=== PATIENT | female | born 1950 | race African-American/Black ===

== ENCOUNTER 2018-10-09 07:33 | Inpatient (IN) | payer MEDICAID ==
[~2018-10-09] VITALS: Ht 167.6 cm; Wt 74.0 kg
[~2018-10-09 07:33] MED LIST: ASPI-1159 PO; CALC667C4 PO; CINA30 PO; CYCL5TAB PO; DOCU-150 PO; HYDR-523 PO; ISOS30TA6 PO; LOSA100T14 PO; NEPVIT PO; NIFE-1 PO; OMEP40CA34 PO; SIMV20TA6 PO; VALS320T2 PO
[2018-10-09] MEDS ORDERED: ONDANSETRON HCL 4MG/2ML INJ IV STA (09:38)
[2018-10-09] MEDS ORDERED: MORPHINE SULFATE 4 MG/ML CPJ (NOT FOR IM USE) IV STA (09:38)
[2018-10-09 11:50] LABS: BASOPHILS % 0.6 % (0.0-2.0); EOSINOPHILS % 1.8 % (0.0-5.0); HEMOGLOBIN. 10.1 g/dL (12.0-16.0); LYMPHOCYTES % 19.5 % (20.0-50.0); MEAN CORPUSCULAR HEMOGLOBIN 27.4 pg (28.0-32.0); MEAN CORPUSCULAR VOLUME 86.5 fL (81.0-99.0); MEAN PLATELET VOLUME 9.1 fl (7.4-10.4); MONOCYTES % 8.4 % (2.0-8.0); NEUTROPHILS % 69.7 % (40.0-76.0); PLATELET 136 x1000/uL (130-400); RED BLOOD CELL COUNT 3.69 mill/uL (4.2-5.4); RED CELL DISTRIBUTION WIDTH 18.1 % (11.6-14.6)
[2018-10-09 11:57] LABS: CHLORIDE 104 mEq/L (98-107)
[2018-10-09 11:58] LABS: PARTIAL THROMBOPLASTIN TIME 29.4 sec (23.4-31.0); PROTHROMBIN TIME 9.6 sec (9.1-11.1)
[2018-10-09] MEDS ORDERED: ASPIRIN 81MG TABLET PO ONE (12:30)
[2018-10-09] MEDS ORDERED: DEXTROSE 50% WATER 50ML SYRINGE IV ONE (13:30)
[2018-10-09] MEDS ORDERED: ACETAMINOPHEN 650MG/20.3ML UDC GT PRN (16:00)
[2018-10-09] MEDS ORDERED: ENOXAPARIN 40MG/0.4ML SYR SUBCUT SCH ×2 (16:00→20:00)
[2018-10-09] MEDS ORDERED: HYDROCODONE/ACETAMINOPHEN 5/325MG TABLET PO PRN (16:00)
[2018-10-09] MEDS ORDERED: DIPHENHYDRAMINE 50MG/ML VIAL IV PRN (16:00)
[2018-10-09] MEDS ORDERED: GUAIFENESIN 200MG/10ML SUGAR FREE UDC PO PRN (16:00)
[2018-10-09] MEDS ORDERED: CLONIDINE 0.1MG TABLET PO PRN (16:00)
[2018-10-09] MEDS ORDERED: IPRATROPIUM/ALBUTEROL 0.5-3(2.5)MG/3ML NEB INH PRN (16:00)
[2018-10-09] MEDS ORDERED: ACETAMINOPHEN 325MG TABLET PO PRN (16:00)
[2018-10-09] MEDS ORDERED: DOCUSATE SODIUM 100MG CAPSULE PO PRN (16:00)
[2018-10-09] MEDS ORDERED: ACETAMINOPHEN 650MG SUPP PR PRN (16:00)
[2018-10-09] MEDS ORDERED: NA PHOS,M-B/NA PHOS,DI-BA ENEMA 118ML PR PRN (16:00)
[2018-10-09] MEDS ORDERED: MAGNESIUM/ALUMINUM HYDROXIDE/SIMETHICONE 30ML UDC PO PRN (16:00)
[2018-10-09 20:00] VITALS: BP 127/75
[2018-10-09] MEDS: HYDROCODONE/ACETAMINOPHEN 10/325MG TABLET PO PRN (20:33)
[2018-10-09] MEDS: SODIUM CHLORIDE 0.9% INJ 3ML FLUSH IVF SCH (20:48)
[2018-10-10] VITALS: BP 123/53
[2018-10-10 01:22] LABS: CREATINE KINASE 52 IU/L (26-192)
[2018-10-10 01:25] LABS: CREATINE KINASE MB FRACTION 2.8 ng/mL (0.5-3.6)
[2018-10-10 04:00] VITALS: BP 107/63
[2018-10-10] MEDS: HYDROCODONE/ACETAMINOPHEN 10/325MG TABLET PO PRN ×2 (04:09→17:28)
[2018-10-10] MEDS: SODIUM CHLORIDE 0.9% INJ 3ML FLUSH IVF SCH ×2 (06:10→21:52)
[2018-10-10 08:00] VITALS: BP 125/77
[2018-10-10 11:22] LABS: BASOPHILS % 0.7 % (0.0-2.0); EOSINOPHILS % 1.5 % (0.0-5.0); HEMATOCRIT. 33.5 % (36.0-48.0); HEMOGLOBIN. 10.6 g/dL (12.0-16.0); LYMPHOCYTES % 18.7 % (20.0-50.0); MEAN CORPUSCULAR HEMOGLOBIN 27.1 pg (28.0-32.0); MEAN CORPUSCULAR VOLUME 85.5 fL (81.0-99.0); MONOCYTES % 10.3 % (2.0-8.0); NEUTROPHILS % 68.8 % (40.0-76.0); PLATELET 146 x1000/uL (130-400); RED BLOOD CELL COUNT 3.91 mill/uL (4.2-5.4); RED CELL DISTRIBUTION WIDTH 18.2 % (11.6-14.6)
[2018-10-10 11:35] LABS: CHLORIDE 104 mEq/L (98-107)
[2018-10-10 11:45] LABS: LDL CHOLESTEROL 47 mg/dL (5-100)
[2018-10-10 11:46] LABS: CREATINE KINASE 47 IU/L (26-192); HDL CHOLESTEROL 106 mg/dL (40-59)
[2018-10-10 12:00] VITALS: BP 147/76
[2018-10-10 13:20] LABS: T4 FREE 1.21 ng/dL (0.76-1.46)
[2018-10-10 16:00] VITALS: BP 133/68
[2018-10-10 20:00] VITALS: BP 144/71
[2018-10-10] MEDS ORDERED: ENOXAPARIN 30MG/0.3ML SYR SUBCUT SCH (21:00)
[2018-10-11 04:00] VITALS: BP 178/81
[2018-10-11] MEDS: HYDROCODONE/ACETAMINOPHEN 10/325MG TABLET PO PRN (04:28)
[2018-10-11] MEDS: SODIUM CHLORIDE 0.9% INJ 3ML FLUSH IVF SCH ×2 (05:44→05:45)
[2018-10-11 07:43] LABS: HEMATOCRIT. 33.2 % (36.0-48.0); HEMOGLOBIN. 10.4 g/dL (12.0-16.0); MEAN CORPUSCULAR HEMOGLOBIN 26.9 pg (28.0-32.0); MEAN PLATELET VOLUME 9.5 fl (7.4-10.4); PLATELET 129 x1000/uL (130-400); RED BLOOD CELL COUNT 3.86 mill/uL (4.2-5.4)
[2018-10-11 08:00] VITALS: BP 146/69
[2018-10-11 08:09] LABS: PHOSPHORUS 4.4 mg/dL (2.5-4.9)
[2018-10-11 12:00] VITALS: BP 149/64
[2018-10-11 14:41] VITALS: BP 149/64
[2018-10-11 17:40] LABS: PLATELET ESTIMATE DECREASED
== END 2018-10-11 16:15 | disposition home or self-care (01) | DRG 203 ==
LOC: ER 07:33 → 7WST 12:37 → ENRESERV 17:09
PROVIDERS: ADMIT Family Medicine; ATTEND Family Medicine
PROC: 5A1D70Z Performance of Urinary Filtration, Intermittent, Less than 6 Hours Per Day (ICD-10-PCS; principal; 2018-10-10)
DX: M94.0 Chondrocostal junction syndrome [Tietze] (principal); I12.0 Hypertensive chronic kidney disease with stage 5 chronic kidney disease or end stage renal disease; F03.90 Unspecified dementia, unspecified severity, without behavioral disturbance, psychotic disturbance, mood disturbance, and anxiety; N18.6 End stage renal disease; D63.1 Anemia in chronic kidney disease; J44.9 Chronic obstructive pulmonary disease, unspecified; K21.9 Gastro-esophageal reflux disease without esophagitis; M79.606 Pain in leg, unspecified; W18.39XA Other fall on same level, initial encounter; Z88.8 Allergy status to other drugs, medicaments and biological substances; Z99.2 Dependence on renal dialysis; Z72.0 Tobacco use; Z88.1 Allergy status to other antibiotic agents; Y93.89 Activity, other specified; Y92.89 Other specified places as the place of occurrence of the external cause; Y99.8 Other external cause status
CPT/HCPCS: 36415; 71045; 72070; 80048; 80061; 82550; 82553; 82962; 83036; 83735; 83880; 84100; 84439; 84443; 84484; 85379; 93005; 93306; 93970; 96372; 99285; J1200; J1650; J2270; J2405

== ENCOUNTER 2018-11-19 15:31 | Emergency (ER) | payer MEDICAID ==
[~2018-11-19] VITALS: Ht 160 cm; Wt 70.0 kg
[2018-11-19 20:53] VITALS: BP 192/85
== END 2018-11-19 22:48 | disposition left against medical advice (07) ==
LOC: ER 16:07
DX: Z53.21 Procedure and treatment not carried out due to patient leaving prior to being seen by health care provider (principal)

== ENCOUNTER 2020-01-05 14:54 | Emergency (ER) | payer MEDICAID ==
[~2020-01-05] VITALS: Ht 167.6 cm; Wt 80.0 kg
[~2020-01-05 14:54] MED LIST changes: -ASPI-1159 PO; +ASPI-1497 PO; -LOSA100T14 PO; +LOSA100T32 PO; -NIFE-1 PO; +NIFE-53 PO; +OMEP40CA12 PO; -OMEP40CA34 PO; +SIMV-43 PO; -SIMV20TA6 PO
[2020-01-05 14:56] VITALS: BP 110/53
[2020-01-05] MEDS ORDERED: ACETAMINOPHEN 325MG TABLET PO STA (18:06)
== END 2020-01-05 21:17 | disposition home or self-care (01) ==
LOC: ER 15:07
DX: S80.11XA Contusion of right lower leg, initial encounter (principal); X58.XXXA Exposure to other specified factors, initial encounter; Y93.9 Activity, unspecified; Y92.89 Other specified places as the place of occurrence of the external cause; I12.0 Hypertensive chronic kidney disease with stage 5 chronic kidney disease or end stage renal disease; N18.6 End stage renal disease; Z99.2 Dependence on renal dialysis
CPT/HCPCS: 73590; 93971; 99284

== ENCOUNTER 2021-04-29 14:56 | Inpatient (IN) | payer MEDICAID ==
[~2021-04-29] VITALS: Ht 165.1 cm; Wt 71.2 kg
[~2021-04-29 14:56] MED LIST changes: -ISOS30TA6 PO; +ISOS30TA91 PO
[2021-04-29 22:25] LABS: BASOPHILS % 0.5 % (0.0-2.0); EOSINOPHILS % 1.9 % (0.0-5.0); HEMATOCRIT. 36.1 % (36.0-48.0); HEMOGLOBIN. 11.8 g/dL (12.0-16.0); LYMPHOCYTES % 21.3 % (20.0-50.0); MEAN CORPUSCULAR VOLUME 85.9 fL (81.0-99.0); MEAN PLATELET VOLUME 9.3 fl (7.4-10.4); MONOCYTES % 8.6 % (2.0-8.0); NEUTROPHILS % 67.7 % (40.0-76.0); PLATELET 260 x1000/uL (130-400); RED CELL DISTRIBUTION WIDTH 16.7 % (11.6-14.6)
[2021-04-29 22:26] LABS: CHLORIDE 100 mEq/L (98-107)
[2021-04-29 22:29] LABS: INR 0.9; PROTHROMBIN TIME 9.8 sec (9.6-11.0)
[2021-04-29] MEDS ORDERED: DEXTROSE 50% WATER 50ML SYRINGE IV NR (23:15)
[2021-04-29] MEDS ORDERED: ALBUTEROL (0.083%) 2.5MG/3ML NEB HHN NR (23:15)
[2021-04-29] MEDS ORDERED: SODIUM POLYSTYRENE SULFONATE 15 G/60 ML BOT PO NR (23:15)
[2021-04-29] MEDS ORDERED: INSULIN REGULAR (HUMULIN R) 300UNITS/3ML VIAL IV NR (23:15)
[2021-04-29] MEDS ORDERED: FUROSEMIDE 100MG/10ML VIAL IV NR (23:15)
[2021-04-29] MEDS ORDERED: CALCIUM GLUCONATE 100MG/ML 10ML VIAL IV ONE (23:45)
[2021-04-30 09:06] VITALS: BP 167/77
[2021-04-30] MEDS ORDERED: ONDANSETRON HCL 4MG/2ML INJ IV PRN (10:15)
[2021-04-30] MEDS: AMLODIPINE 10MG TABLET PO SCH (12:45)
[2021-04-30] MEDS ORDERED: LIDOCAINE HCL 1% 20ML VIAL (Pyxis) INJ ONE (14:07)
[2021-04-30] MEDS ORDERED: HEPARIN 1000 UNITS/ML 10ML ONE (14:07)
[2021-04-30] MEDS ORDERED: SODIUM POLYSTYRENE SULFONATE 15 G/60 ML BOT PO NR (15:00)
[2021-04-30 16:00] VITALS: BP 153/79
[2021-04-30] MEDS ORDERED: HYDROCODONE/ACETAMINOPHEN 5/325MG TABLET PO PRN (16:30)
[2021-04-30] MEDS ORDERED: MORPHINE SULFATE 2 MG/ML CPJ (NOT FOR IM USE) IV ONE (16:30)
[2021-04-30] MEDS ORDERED: CLONIDINE 0.1MG TABLET PO PRN (16:30)
[2021-04-30 17:12] LABS: BASOPHILS % 0.3 % (0.0-2.0); EOSINOPHILS % 1.7 % (0.0-5.0); HEMATOCRIT. 33.8 % (36.0-48.0); HEMOGLOBIN. 10.4 g/dL (12.0-16.0); LYMPHOCYTES % 17.5 % (20.0-50.0); MEAN CORPUSCULAR HEMOGLOBIN 28.1 pg (28.0-32.0); MEAN CORPUSCULAR VOLUME 90.9 fL (81.0-99.0); MEAN PLATELET VOLUME 9.2 fl (7.4-10.4); MONOCYTES % 7.6 % (2.0-8.0); NEUTROPHILS % 72.9 % (40.0-76.0); PLATELET 149 x1000/uL (130-400); RED BLOOD CELL COUNT 3.72 mill/uL (4.2-5.4); RED CELL DISTRIBUTION WIDTH 17.2 % (11.6-14.6)
[2021-04-30 17:24] LABS: PHOSPHORUS 6.7 mg/dL (2.5-4.9)
[2021-04-30 17:59] LABS: HEPATITIS B SURFACE ANTIGEN NEGATIVE
[2021-04-30 20:00] VITALS: BP 120/56
[2021-05-01] VITALS: BP 151/70
[2021-05-01] MEDS: ACETAMINOPHEN 325MG TABLET PO PRN (01:40)
[2021-05-01 04:00] VITALS: BP 145/69
[2021-05-01] MEDS ORDERED: MORPHINE SULFATE 2 MG/ML CPJ (NOT FOR IM USE) IV SCH (05:30)
[2021-05-01 08:00] VITALS: BP 147/62
[2021-05-01] MEDS ORDERED: NALOXONE HCL 0.4MG/ML VIAL IV PRN (08:45)
[2021-05-01 08:47] LABS: BASOPHILS % 0.6 % (0.0-2.0); EOSINOPHILS % 1.3 % (0.0-5.0); HEMATOCRIT. 38.5 % (36.0-48.0); HEMOGLOBIN. 11.5 g/dL (12.0-16.0); LYMPHOCYTES % 16.6 % (20.0-50.0); MEAN CORPUSCULAR HEMOGLOBIN 27.9 pg (28.0-32.0); MEAN CORPUSCULAR VOLUME 93.7 fL (81.0-99.0); MONOCYTES % 8.8 % (2.0-8.0); NEUTROPHILS % 72.7 % (40.0-76.0); PLATELET 179 x1000/uL (130-400); RED BLOOD CELL COUNT 4.11 mill/uL (4.2-5.4); RED CELL DISTRIBUTION WIDTH 17.2 % (11.6-14.6)
[2021-05-01] MEDS: HYDROCODONE/ACETAMINOPHEN 5/325MG TABLET PO PRN ×2 (09:16→14:06)
[2021-05-01] MEDS: AMLODIPINE 10MG TABLET PO SCH (09:17)
[2021-05-01 12:00] VITALS: BP 141/60
[2021-05-01 16:00] VITALS: BP 139/78
[2021-05-01 20:36] VITALS: BP 148/69
[2021-05-02] VITALS (27 sets, daily range): BP systolic 134–185; BP diastolic 63–79
[2021-05-02] MEDS ORDERED: CEFAZOLIN 1000MG PREMIX 50 ML IV SCH (07:15)
[2021-05-02] MEDS ORDERED: CEFAZOLIN 1000MG PREMIX 50 ML IV ONE (08:32)
[2021-05-02] MEDS ORDERED: LIDOCAINE HCL 1% 20ML VIAL (Pyxis) INJ ONE (09:17)
[2021-05-02] MEDS ORDERED: HEPARIN 1000 UNITS/ML 10ML ONE (09:17)
[2021-05-02] MEDS ORDERED: FENTANYL CITRATE/PF 50MCG/ML 2ML VIAL ONE (09:37)
[2021-05-02] MEDS ORDERED: IOHEXOL-300 50 ML BOTTLE IV ONE (09:53)
[2021-05-02] MEDS ORDERED: FENTANYL CITRATE/PF 50MCG/ML 2ML VIAL IV NR (10:00)
[2021-05-02] MEDS: AMLODIPINE 10MG TABLET PO SCH (12:24)
[2021-05-02] MEDS ORDERED: HYDRALAZINE HCL 100MG TABLET PO NR (15:30)
[2021-05-02] MEDS ORDERED: HYDRALAZINE HCL 100MG TABLET PO SCH (22:00)
[2021-05-02] MEDS: ACETAMINOPHEN 325MG TABLET PO PRN (22:17)
== END 2021-05-02 23:10 | disposition home or self-care (01) | DRG 206 ==
LOC: ER 14:56 → 6WST 04-30 01:36 → ENRESERV 04-30 07:14
PROVIDERS: ADMIT Internal Medicine; ATTEND Internal Medicine
PROC: 06HY33Z Insertion of Infusion Device into Lower Vein, Percutaneous Approach (ICD-10-PCS; principal; 2021-04-30)
PROC: B51BZZA Fluoroscopy of Right Lower Extremity Veins, Guidance (ICD-10-PCS; 2021-04-30)
PROC: 5A1D70Z Performance of Urinary Filtration, Intermittent, Less than 6 Hours Per Day (ICD-10-PCS; 2021-04-30)
PROC: 5A1D70Z Performance of Urinary Filtration, Intermittent, Less than 6 Hours Per Day (ICD-10-PCS; 2021-05-01)
PROC: 0JH63XZ Insertion of Tunneled Vascular Access Device into Chest Subcutaneous Tissue and Fascia, Percutaneous Approach (ICD-10-PCS; 2021-05-02)
PROC: 02H633Z Insertion of Infusion Device into Right Atrium, Percutaneous Approach (ICD-10-PCS; 2021-05-02)
PROC: B518ZZA Fluoroscopy of Superior Vena Cava, Guidance (ICD-10-PCS; 2021-05-02)
DX: T82.838A Hemorrhage due to vascular prosthetic devices, implants and grafts, initial encounter (principal); I12.0 Hypertensive chronic kidney disease with stage 5 chronic kidney disease or end stage renal disease; N18.6 End stage renal disease; E87.5 Hyperkalemia; D64.9 Anemia, unspecified; Y84.1 Kidney dialysis as the cause of abnormal reaction of the patient, or of later complication, without mention of misadventure at the time of the procedure; Y92.89 Other specified places as the place of occurrence of the external cause; Z82.49 Family history of ischemic heart disease and other diseases of the circulatory system; Z99.2 Dependence on renal dialysis; Z20.822 Contact with and (suspected) exposure to COVID-19
CPT/HCPCS: 36415; 36556; 36558; 71045; 73560; 76937; 77001; 80048; 80053; 82962; 83735; 84100; 85025; 86705; 86709; 86803; 87340; 87426; 93005; 93970; 99152; 99153; 99285; C1750; C1752; C1769; C1887; J0610; J0690; J1644; J1815; J1940; J2270; J3010; J3490; L8514; Q9967; U0003; U0005; G0500

== ENCOUNTER 2021-09-02 17:21 | Inpatient (IN) | payer MEDICAID ==
[~2021-09-02] VITALS: Ht 170.2 cm; Wt 73.0 kg
[~2021-09-02 17:21] MED LIST changes: -OMEP40CA12 PO; +OMEP40CA20 PO
[2021-09-02 20:20] LABS: BASOPHILS % 0.4 % (0.0-2.0); EOSINOPHILS % 2.4 % (0.0-5.0); HEMATOCRIT. 41.2 % (36.0-48.0); HEMOGLOBIN. 12.4 g/dL (12.0-16.0); LYMPHOCYTES % 24.6 % (20.0-50.0); MEAN CORPUSCULAR HEMOGLOBIN 27.1 pg (28.0-32.0); MEAN CORPUSCULAR VOLUME 90.4 fL (81.0-99.0); MEAN PLATELET VOLUME 8.4 fl (7.4-10.4); MONOCYTES % 9.5 % (2.0-8.0); NEUTROPHILS % 63.1 % (40.0-76.0); PLATELET 121 x1000/uL (130-400); RED BLOOD CELL COUNT 4.56 mill/uL (4.2-5.4); RED CELL DISTRIBUTION WIDTH 22.1 % (11.6-14.6)
[2021-09-02 20:27] LABS: CHLORIDE 104 mEq/L (98-107)
[2021-09-02] MEDS ORDERED: DEXTROSE 50% WATER 50ML SYRINGE IV ONE (21:00)
[2021-09-02] MEDS ORDERED: ALBUTEROL (0.083%) 2.5MG/3ML NEB HHN ONE (21:00)
[2021-09-02] MEDS ORDERED: SODIUM POLYSTYRENE SULFONATE 15 G/60 ML BOT PO ONE (21:00)
[2021-09-02] MEDS ORDERED: INSULIN REGULAR (HUMULIN R) 300UNITS/3ML VIAL IV ONE (21:00)
[2021-09-02] MEDS ORDERED: CALCIUM CHLORIDE 1GM/10ML SYR IV ONE (21:00)
[2021-09-02 22:22] LABS: PLATELET ESTIMATE SLIGHTLY DECREASED
[2021-09-02] MEDS ORDERED: ACETAMINOPHEN 325MG TABLET PO ONE (22:45)
[2021-09-03] MEDS ORDERED: MORPHINE SULFATE 2 MG/ML CPJ (NOT FOR IM USE) IV PRN (05:00)
[2021-09-03] MEDS ORDERED: ONDANSETRON HCL 4MG/2ML INJ IV PRN ×2 (05:00→12:00)
[2021-09-03] MEDS ORDERED: NALOXONE HCL 0.4MG/ML VIAL IV PRN (05:15)
[2021-09-03 07:30] LABS: BASOPHILS % 0.4 % (0.0-2.0); EOSINOPHILS % 1.2 % (0.0-5.0); HEMATOCRIT. 37.4 % (36.0-48.0); HEMOGLOBIN. 11.3 g/dL (12.0-16.0); MEAN CORPUSCULAR HEMOGLOBIN 27.1 pg (28.0-32.0); MEAN CORPUSCULAR VOLUME 90.2 fL (81.0-99.0); MEAN PLATELET VOLUME 8.4 fl (7.4-10.4); MONOCYTES % 11.2 % (2.0-8.0); NEUTROPHILS % 70.2 % (40.0-76.0); PLATELET 117 x1000/uL (130-400); RED BLOOD CELL COUNT 4.15 mill/uL (4.2-5.4); RED CELL DISTRIBUTION WIDTH 22.4 % (11.6-14.6)
[2021-09-03 07:41] LABS: CHLORIDE 107 mEq/L (98-107)
[2021-09-03 07:49] LABS: PHOSPHORUS 5.3 mg/dL (2.5-4.9)
[2021-09-03] MEDS: AMLODIPINE 10MG TABLET PO SCH (13:00)
[2021-09-03] MEDS ORDERED: SODIUM POLYSTYRENE SULFONATE 15 G/60 ML BOT PO NR (14:00)
[2021-09-03 18:00] VITALS: BP 123/52
[2021-09-03 18:21] VITALS: BP 123/52
[2021-09-03 20:00] VITALS: BP 154/64
[2021-09-03 22:18] LABS: HEPATITIS B SURFACE ANTIGEN NEGATIVE
[2021-09-03] MEDS: ACETAMINOPHEN 325MG TABLET PO PRN (22:39)
[2021-09-04] VITALS: BP 153/69
[2021-09-04] MEDS ORDERED: KETOROLAC 15MG/ML VIAL IV PRN (02:45)
[2021-09-04] MEDS ORDERED: MORPHINE SULFATE 2 MG/ML CPJ (NOT FOR IM USE) IV NR (02:45)
[2021-09-04 04:00] VITALS: BP 154/48
[2021-09-04 07:54] LABS: BASOPHILS % 0.5 % (0.0-2.0); EOSINOPHILS % 2.2 % (0.0-5.0); HEMATOCRIT. 36.2 % (36.0-48.0); HEMOGLOBIN. 11.6 g/dL (12.0-16.0); LYMPHOCYTES % 17.6 % (20.0-50.0); MEAN CORPUSCULAR HEMOGLOBIN 27.9 pg (28.0-32.0); MEAN CORPUSCULAR VOLUME 87.1 fL (81.0-99.0); MEAN PLATELET VOLUME 8.9 fl (7.4-10.4); MONOCYTES % 9.2 % (2.0-8.0); NEUTROPHILS % 70.5 % (40.0-76.0); PLATELET 111 x1000/uL (130-400); RED BLOOD CELL COUNT 4.16 mill/uL (4.2-5.4); RED CELL DISTRIBUTION WIDTH 22.2 % (11.6-14.6)
[2021-09-04 08:00] VITALS: BP 169/73
[2021-09-04 08:30] LABS: PHOSPHORUS 6.6 mg/dL (2.5-4.9)
[2021-09-04] MEDS: ACETAMINOPHEN 325MG TABLET PO PRN (09:08)
[2021-09-04] MEDS: SODIUM POLYSTYRENE SULFONATE 15 G/60 ML BOT PO SCH ×2 (10:00→10:55)
[2021-09-04 12:00] VITALS: BP 181/66
[2021-09-04 16:00] VITALS: BP 146/67
[2021-09-04] MEDS ORDERED: CLONIDINE 0.1MG TABLET PO PRN (19:45)
[2021-09-04] MEDS ORDERED: ACETAMINOPHEN 325MG TABLET PO PRN (19:45)
[2021-09-04] MEDS ORDERED: DIPHENHYDRAMINE 50MG/ML VIAL IV PRN (19:45)
[2021-09-04 20:00] VITALS: BP 168/58
[2021-09-05] VITALS: BP 158/58
[2021-09-05 04:00] VITALS: BP 153/64
[2021-09-05 07:21] LABS: PHOSPHORUS 5.7 mg/dL (2.5-4.9)
[2021-09-05 07:35] LABS: BASOPHILS % 0.4 % (0.0-2.0); EOSINOPHILS % 2.9 % (0.0-5.0); HEMATOCRIT. 36.1 % (36.0-48.0); HEMOGLOBIN. 11.4 g/dL (12.0-16.0); LYMPHOCYTES % 24.6 % (20.0-50.0); MEAN CORPUSCULAR HEMOGLOBIN 27.4 pg (28.0-32.0); MEAN CORPUSCULAR VOLUME 86.5 fL (81.0-99.0); MEAN PLATELET VOLUME 8.7 fl (7.4-10.4); MONOCYTES % 14.3 % (2.0-8.0); NEUTROPHILS % 57.8 % (40.0-76.0); PLATELET 95 x1000/uL (130-400); RED BLOOD CELL COUNT 4.17 mill/uL (4.2-5.4); RED CELL DISTRIBUTION WIDTH 22.2 % (11.6-14.6)
[2021-09-05 08:00] VITALS: BP 148/89
[2021-09-05] MEDS: AMLODIPINE 10MG TABLET PO SCH (09:00)
[2021-09-05 12:00] VITALS: BP 135/57
[2021-09-05 16:00] VITALS: BP 151/61
[2021-09-05 16:19] VITALS: BP 151/61
== END 2021-09-05 18:40 | disposition home or self-care (01) | DRG 470 ==
LOC: ER 17:21 → EDBEDREQ 20:50 → MICUSO 21:29 → EDBEDREQTM 21:33 → EDBEDREQ 21:33 → 7EST 09-03 21:17
PROVIDERS: ADMIT Internal Medicine; ATTEND Internal Medicine
PROC: 5A1D70Z Performance of Urinary Filtration, Intermittent, Less than 6 Hours Per Day (ICD-10-PCS; principal; 2021-09-03)
DX: I12.0 Hypertensive chronic kidney disease with stage 5 chronic kidney disease or end stage renal disease (principal); D69.6 Thrombocytopenia, unspecified; N18.6 End stage renal disease; E44.0 Moderate protein-calorie malnutrition; E87.5 Hyperkalemia; D64.9 Anemia, unspecified; Z20.822 Contact with and (suspected) exposure to COVID-19; Z82.49 Family history of ischemic heart disease and other diseases of the circulatory system; Z99.2 Dependence on renal dialysis; Z91.15 Patient's noncompliance with renal dialysis; Z88.1 Allergy status to other antibiotic agents; Z88.5 Allergy status to narcotic agent; Z88.8 Allergy status to other drugs, medicaments and biological substances; Z68.25 Body mass index [BMI] 25.0-25.9, adult
CPT/HCPCS: 36415; 71045; 80048; 80053; 83735; 84100; 85025; 86705; 86709; 86803; 87340; 87426; 93005; 94644; 99291; J1200; J1815; J2270; J2405; J3490

== ENCOUNTER 2021-12-11 02:35 | Emergency (ER) | payer MEDICAID ==
[~2021-12-11] VITALS: Ht 170.2 cm; Wt 85.0 kg
[2021-12-11 03:32] LABS: BASOPHILS % 0.2 % (0.0-2.0); HEMATOCRIT. 27.3 % (36.0-48.0); LYMPHOCYTES % 10.4 % (20.0-50.0); MEAN CORPUSCULAR HEMOGLOBIN 29.2 pg (28.0-32.0); MEAN CORPUSCULAR VOLUME 88.7 fL (81.0-99.0); MEAN PLATELET VOLUME 9.3 fl (7.4-10.4); MONOCYTES % 12.3 % (2.0-8.0); NEUTROPHILS % 76.1 % (40.0-76.0); PLATELET 105 x1000/uL (130-400); RED BLOOD CELL COUNT 3.08 mill/uL (4.2-5.4); RED CELL DISTRIBUTION WIDTH 19.1 % (11.6-14.6)
[2021-12-11 04:50] VITALS: BP 112/54
== END 2021-12-11 05:23 | disposition short-term general hospital (02) ==
LOC: ER 02:35
DX: I12.0 Hypertensive chronic kidney disease with stage 5 chronic kidney disease or end stage renal disease (principal); N18.6 End stage renal disease; I44.0 Atrioventricular block, first degree; I45.10 Unspecified right bundle-branch block; Z88.1 Allergy status to other antibiotic agents; Z88.0 Allergy status to penicillin; Z88.5 Allergy status to narcotic agent
CPT/HCPCS: 36415; 80048; 85025; 86850; 86900; 93005; 99284

== ENCOUNTER 2022-04-05 18:27 | Emergency (ER) | payer MEDICAID, OTHER ==
[~2022-04-05] VITALS: Ht 167.6 cm; Wt 89.0 kg
[2022-04-06 02:22] LABS: CHLORIDE 104 mEq/L (98-107); HEMATOCRIT. 34.8 % (36.0-48.0); HEMOGLOBIN. 11.2 g/dL (12.0-16.0); MEAN CORPUSCULAR HEMOGLOBIN 27.7 pg (28.0-32.0); MEAN CORPUSCULAR VOLUME 86.4 fL (81.0-99.0); PLATELET 148 x1000/uL (130-400); RED BLOOD CELL COUNT 4.03 mill/uL (4.2-5.4); RED CELL DISTRIBUTION WIDTH 18.5 % (11.6-14.6)
[2022-04-06 02:50] LABS: INR 0.9; PROTHROMBIN TIME 10.2 sec (9.6-11.0)
[2022-04-06 03:03] LABS: PLATELET ESTIMATE NORMAL
[2022-04-06] MEDS ORDERED: CLIN-194 MT (03:25)
[2022-04-06] MEDS ORDERED: MUPI15CR11 TP (03:25)
[2022-04-06 03:30] VITALS: BP 158/82
== END 2022-04-06 03:52 | disposition home or self-care (01) ==
LOC: ER 18:27
DX: T82.43XA Leakage of vascular dialysis catheter, initial encounter (principal); I12.0 Hypertensive chronic kidney disease with stage 5 chronic kidney disease or end stage renal disease; N18.6 End stage renal disease; Z99.2 Dependence on renal dialysis; Z79.82 Long term (current) use of aspirin; Z88.3 Allergy status to other anti-infective agents; Z88.0 Allergy status to penicillin; Z88.8 Allergy status to other drugs, medicaments and biological substances; Y84.1 Kidney dialysis as the cause of abnormal reaction of the patient, or of later complication, without mention of misadventure at the time of the procedure; Y92.89 Other specified places as the place of occurrence of the external cause
CPT/HCPCS: 36415; 80053; 85025; 93005; 99283

== ENCOUNTER 2022-08-30 13:37 | Inpatient (IN) | payer MEDICAID, OTHER ==
[~2022-08-30] VITALS: Ht 165.1 cm; Wt 76.4 kg
[~2022-08-30 13:37] MED LIST changes: +CLIN-194 MT; +MUPI15CR11 TP
[2022-08-30 22:57] LABS: BASOPHILS % 0.4 % (0.0-2.0); EOSINOPHILS % 3.5 % (0.0-5.0); HEMATOCRIT. 39.2 % (36.0-48.0); HEMOGLOBIN. 12.4 g/dL (12.0-16.0); LYMPHOCYTES % 20.3 % (20.0-50.0); MEAN CORPUSCULAR HEMOGLOBIN 29.6 pg (28.0-32.0); MEAN CORPUSCULAR VOLUME 93.2 fL (81.0-99.0); MEAN PLATELET VOLUME 9.7 fl (7.4-10.4); MONOCYTES % 12.8 % (2.0-8.0); PLATELET 128 x1000/uL (130-400); RED BLOOD CELL COUNT 4.21 mill/uL (4.2-5.4); RED CELL DISTRIBUTION WIDTH 17.2 % (11.6-14.6)
[2022-08-30 23:01] LABS: CHLORIDE 105 mEq/L (98-107)
[2022-08-30 23:12] LABS: D-DIMER 5.53 mg/L FEU (<0.50); INR 0.9; PARTIAL THROMBOPLASTIN TIME < 21.0 sec (23.4-31.0); PROTHROMBIN TIME 9.7 sec (9.6-11.0)
[2022-08-30] MEDS ORDERED: ASPIRIN 325MG EC TABLET PO NR (23:45)
[2022-08-31] MEDS ORDERED: ACETAMINOPHEN 325MG TABLET PO PRN (09:00)
[2022-08-31] MEDS ORDERED: ONDANSETRON HCL 4MG/2ML INJ IV PRN (09:00)
[2022-08-31 10:00] VITALS: BP 138/63
[2022-08-31 11:41] VITALS: BP 147/74
[2022-08-31 12:47] VITALS: BP 138/63
[2022-08-31] MEDS: NIFEDIPINE XL 30MG TAB PO SCH (15:02)
[2022-08-31] MEDS: ISOSORBIDE MONONITRATE 30MG TABLET SR 24HR PO SCH (15:02)
[2022-08-31 16:03] VITALS: BP 145/73
[2022-08-31 18:00] VITALS: BP 147/73
[2022-08-31] MEDS: CINACALCET HCL 30MG TABLET PO SCH (20:24)
[2022-08-31] MEDS: ATORVASTATIN CALCIUM 10MG TABLET PO SCH (20:24)
[2022-08-31 20:43] VITALS: BP 136/71
[2022-09-01] VITALS (15 sets, daily range): BP systolic 115–153; BP diastolic 55–77
[2022-09-01] MEDS ORDERED: HYDROCODONE/ACETAMINOPHEN 10/325MG TABLET PO PRN (06:45)
[2022-09-01] MEDS ORDERED: NALOXONE HCL 0.4MG/ML VIAL IV PRN (07:00)
[2022-09-01 07:40] LABS: BASOPHILS % 0.4 % (0.0-2.0); EOSINOPHILS % 3.6 % (0.0-5.0); HEMATOCRIT. 31.9 % (36.0-48.0); HEMOGLOBIN. 10.4 g/dL (12.0-16.0); MEAN CORPUSCULAR VOLUME 91.6 fL (81.0-99.0); MEAN PLATELET VOLUME 9.4 fl (7.4-10.4); MONOCYTES % 10.4 % (2.0-8.0); NEUTROPHILS % 66.6 % (40.0-76.0); PLATELET 128 x1000/uL (130-400); RED BLOOD CELL COUNT 3.48 mill/uL (4.2-5.4); RED CELL DISTRIBUTION WIDTH 16.4 % (11.6-14.6)
[2022-09-01 08:19] LABS: VITAMIN B12 SERUM 1830 pg/mL (211-911)
[2022-09-01] MEDS: FOLIC ACID/VITAMIN B COMP W-C TABLET PO SCH (08:59)
[2022-09-01] MEDS: OMEPRAZOLE 20MG CAPSULE EXTENDED RELEASE PO SCH (09:00)
[2022-09-01] MEDS: ISOSORBIDE MONONITRATE 30MG TABLET SR 24HR PO SCH (12:18)
[2022-09-01] MEDS: NIFEDIPINE XL 30MG TAB PO SCH (12:18)
[2022-09-01] MEDS: CINACALCET HCL 30MG TABLET PO SCH (18:25)
[2022-09-01] MEDS: ATORVASTATIN CALCIUM 10MG TABLET PO SCH (21:49)
[2022-09-02] VITALS (8 sets, daily range): BP systolic 128–183; BP diastolic 63–87
[2022-09-02] MEDS: FOLIC ACID/VITAMIN B COMP W-C TABLET PO SCH (09:26)
[2022-09-02] MEDS: OMEPRAZOLE 20MG CAPSULE EXTENDED RELEASE PO SCH (09:26)
[2022-09-02] MEDS: ISOSORBIDE MONONITRATE 30MG TABLET SR 24HR PO SCH (09:26)
[2022-09-02] MEDS: NIFEDIPINE XL 30MG TAB PO SCH (09:27)
[2022-09-02] MEDS ORDERED: NIFEDIPINE XL 30MG TAB PO NR (13:30)
[2022-09-02] MEDS: CINACALCET HCL 30MG TABLET PO SCH (20:47)
[2022-09-02] MEDS: ATORVASTATIN CALCIUM 10MG TABLET PO SCH (20:47)
[2022-09-03] VITALS (11 sets, daily range): BP systolic 104–163; BP diastolic 54–82
[2022-09-03 05:56] LABS: BASOPHILS % 0.4 % (0.0-2.0); EOSINOPHILS % 3.9 % (0.0-5.0); HEMATOCRIT. 33.9 % (36.0-48.0); HEMOGLOBIN. 10.8 g/dL (12.0-16.0); LYMPHOCYTES % 22.7 % (20.0-50.0); MEAN CORPUSCULAR HEMOGLOBIN 29.9 pg (28.0-32.0); MEAN CORPUSCULAR VOLUME 93.4 fL (81.0-99.0); MEAN PLATELET VOLUME 9.2 fl (7.4-10.4); MONOCYTES % 9.9 % (2.0-8.0); NEUTROPHILS % 63.1 % (40.0-76.0); PLATELET 162 x1000/uL (130-400); RED BLOOD CELL COUNT 3.63 mill/uL (4.2-5.4); RED CELL DISTRIBUTION WIDTH 16.5 % (11.6-14.6)
[2022-09-03 07:07] LABS: PHOSPHORUS 7.5 mg/dL (2.5-4.9)
[2022-09-03] MEDS ORDERED: NIFEDIPINE XL 60MG TAB PO SCH (09:00)
[2022-09-03] MEDS ORDERED: FAMOTIDINE 20MG TABLET PO SCH (09:00)
[2022-09-03] MEDS: CALCIUM ACETATE 667MG CAPSULE PO SCH ×3 (09:32→18:13)
[2022-09-03] MEDS: FOLIC ACID/VITAMIN B COMP W-C TABLET PO SCH (09:32)
[2022-09-03] MEDS: ISOSORBIDE MONONITRATE 30MG TABLET SR 24HR PO SCH (09:34)
[2022-09-03] MEDS: NIFEDIPINE XL 60MG TAB PO SCH ×2 (09:35→18:13)
[2022-09-03] MEDS ORDERED: CLONIDINE 0.1MG TABLET PO NR (17:45)
[2022-09-05 22:32] LABS: HEPATITIS B SURFACE ANTIGEN NEGATIVE
== END 2022-09-03 19:15 | disposition home or self-care (01) | DRG 470 ==
LOC: ER 13:37 → UNDOADMIN 08-31 01:22 → MICUSO 08-31 01:22 → EDBEDREQTM 08-31 01:25 → EDBEDREQ 08-31 01:25 → 7WST 08-31 10:25
PROVIDERS: ADMIT Internal Medicine; ATTEND Internal Medicine
PROC: 5A1D70Z Performance of Urinary Filtration, Intermittent, Less than 6 Hours Per Day (ICD-10-PCS; principal; 2022-09-01)
PROC: 5A1D70Z Performance of Urinary Filtration, Intermittent, Less than 6 Hours Per Day (ICD-10-PCS; 2022-09-02)
DX: I12.0 Hypertensive chronic kidney disease with stage 5 chronic kidney disease or end stage renal disease (principal); N18.6 End stage renal disease; E44.1 Mild protein-calorie malnutrition; N25.81 Secondary hyperparathyroidism of renal origin; R62.7 Adult failure to thrive; E78.5 Hyperlipidemia, unspecified; Z20.822 Contact with and (suspected) exposure to COVID-19; E21.3 Hyperparathyroidism, unspecified; K21.9 Gastro-esophageal reflux disease without esophagitis; M19.90 Unspecified osteoarthritis, unspecified site; G89.29 Other chronic pain; Z88.0 Allergy status to penicillin; Z99.2 Dependence on renal dialysis; Z86.73 Personal history of transient ischemic attack (TIA), and cerebral infarction without residual deficits; Z88.8 Allergy status to other drugs, medicaments and biological substances; Z79.899 Other long term (current) drug therapy; Z68.28 Body mass index [BMI] 28.0-28.9, adult; Z82.49 Family history of ischemic heart disease and other diseases of the circulatory system; H53.8 Other visual disturbances
CPT/HCPCS: 36415; 70551; 71045; 80048; 80053; 82607; 83880; 84100; 84484; 85025; 85379; 86705; 86709; 86803; 87340; 90935; 93005; 93880; 97162; 97166; 97530; 99285; J2405

== ENCOUNTER 2023-02-27 21:39 | Emergency (ER) | payer OTHER ==
[~2023-02-27] VITALS: Ht 167.6 cm; Wt 59.0 kg
[~2023-02-27 21:39] MED LIST changes: -CLIN-194 MT; -LOSA100T32 PO; +LOSA100T33 PO
[2023-02-27 21:47] VITALS: O2SAT 98
[2023-02-27] MEDS ORDERED: MORPHINE SULFATE 4 MG/ML CPJ (NOT FOR IM USE) IV STA (22:54)
[2023-02-27] MEDS ORDERED: ONDANSETRON HCL 4MG/2ML INJ IV STA (22:54)
[2023-02-27] MEDS ORDERED: SODIUM CHLORIDE 0.9% 500 ML IV ONE (23:15)
[2023-02-27 23:48] LABS: BASOPHILS % 0.6 % (0.0-2.0); EOSINOPHILS % 0.5 % (0.0-5.0); HEMATOCRIT. 41.8 % (36.0-48.0); HEMOGLOBIN. 13.4 g/dL (12.0-16.0); LYMPHOCYTES % 27.4 % (20.0-50.0); MEAN CORPUSCULAR HEMOGLOBIN 27.7 pg (28.0-32.0); MEAN CORPUSCULAR VOLUME 86.5 fL (81.0-99.0); MEAN PLATELET VOLUME 10.3 fl (7.4-10.4); MONOCYTES % 11.1 % (2.0-8.0); NEUTROPHILS % 60.4 % (40.0-76.0); PLATELET 110 x1000/uL (130-400); RED BLOOD CELL COUNT 4.84 mill/uL (4.2-5.4); RED CELL DISTRIBUTION WIDTH 18.5 % (11.6-14.6)
[2023-02-28] MEDS ORDERED: MORPHINE SULFATE 2 MG/ML CPJ (NOT FOR IM USE) IV ONE ×2 (01:45→05:00)
[2023-02-28 02:05] LABS: CHLORIDE 106 mEq/L (98-107)
[2023-02-28 04:56] VITALS: BP 118/70; PULSE 87; RESP 16; TEMP 98.4
== END 2023-02-28 05:40 | disposition short-term general hospital (02) ==
LOC: ER 21:39 → CANBEDREQ 03-01 19:33
DX: I95.9 Hypotension, unspecified (principal); R51.9 Headache, unspecified; I12.0 Hypertensive chronic kidney disease with stage 5 chronic kidney disease or end stage renal disease; N18.6 End stage renal disease; Z99.2 Dependence on renal dialysis
CPT/HCPCS: 99291; 96374; 70450; 71045; 96361; 96375; 83605 ×2; 85025; 36415 ×2; 93005; 80053; 86850; 86900; 86901; 87040; 84484; 96376; J2405; J2270 ×2; J7040